=== PATIENT | female | born 1955 ===

== ENCOUNTER 2024-05-12 05:00 | Day surgery (SDC) | payer OTHER ==
[2024-05-06 08:24] LABS: URINE APPEARANCE Clear; URINE BILIRRUBIN Negative (NEGATIVE); URINE BLOOD Negative; URINE COLOR Yellow; URINE GLUCOSE Negative (NEGATIVE); URINE KETONE Negative (NEGATIVE); URINE LEUKOCYTE Negative; URINE NITRATE Negative; URINE PROTEIN Negative (NEGATIVE); URINE UROBILINOGEN 0.2 E.U./dl
[2024-05-06 08:42] LABS: HEMATOCRIT 39.5 % (36.0-45.00); MEAN CELL VOLUME 87.8 fL (80.00-100.00); MEAN CORPUSCULAR HGB CONC 35.3 g/dl (32.0-36.0); PLATELET COUNT 210 K/uL (150-450); RED BLOOD COUNT 4.51 M/uL (4.00-6.00); RED CELL DISTRIBUTION WIDTH 13.5 % (11.5-14.5)
[2024-05-06 08:50] LABS: INR 0.98; PARTIAL THROMBOPLASTIN TIME 25.9 SECONDS (22.0-34.0); PROTHROMBIN TIME 10.3 SECONDS (9.0-11.5)
[2024-05-06 09:03] LABS: URINE BACTERIA 138.5 uL (0.0-1933); URINE EPITHELIAL CELLS 11.7 uL (0.0-38.8); URINE WBC 7.3 uL (0.0-23.2)
[2024-05-06 09:29] LABS: URINE CAST 0.15 uL (0.0-1.40); URINE RBC 0.7 uL (0.0-20.8)
[2024-05-06 09:33] LABS: ALBUMIN 3.6 gm/dL (3.4-5.0); BILIRUBIN TOTAL 0.51 mg/dL (0.3-1.2); CALCIUM 10.9 mg/dL (8.5-10.1); CREATININE SERUM 0.7 mg/dL (0.55-1.02); GFR 83.21; GLOBULINA 3.7 G/DL (2.4-3.5); POTASSIUM 3.67 mEq/L (3.5-5.1); TOTAL PROTEIN 7.3 gm/dL (6.4-8.2)
[~2024-05-12] VITALS: Ht 154.9 cm; Wt 77.1 kg
[~2024-05-12 05:00] MED LIST: LOSARTAN 20 MG; OZEMPIC0.25 MG/02; ROSUVASTATIN CA20 MG
[2024-05-12] MEDS ORDERED: CEFAZOLIN SODIUM 1,000 MG VIAL ONE (07:26)
[2024-05-12] MEDS ORDERED: DEXAMETHASONE SODIUM PHOSPHATE 4 MG/ML VIAL ONE (07:31)
[2024-05-12] MEDS ORDERED: CEFAZOLIN SODIUM 1,000 MG VIAL IV SCH (08:45)
[2024-05-12] MEDS ORDERED: DEXAMETHASONE SODIUM PHOSPHATE 4 MG/ML VIAL IV SCH (08:45)
== END 2024-05-12 15:10 | disposition home or self-care (01) ==
LOC: O/R 05:00 → SURH 05:00 → CIR.AMB 05:00 → EDSTATUS 07:00 → SURH 07:00 → O/R 15:10 → CIR.AMB 15:10
PROVIDERS: ATTEND Surgery
DX: D35.1 Benign neoplasm of parathyroid gland (principal); E21.0 Primary hyperparathyroidism